=== PATIENT | female | born 1965 | race Caucasian/White ===

== ENCOUNTER 2017-09-12 22:22 | Emergency (ER) | payer SELFPAY ==
--- NOTE | 2017-09-12 22:57 | ERPHSYRPT ---
- History of Present Illness Time Seen by Provider: 09/12/17 22:50 Historian: patient Exam Limitations: no limitations Patient Subjective Stated Complaint: right flank pain since 1600 today. has hx kidney stones. difficulty urinating. Triage Nursing Assessment: alert and in slight distress. pain to right flank radiating around to belly. difficulty urinating. has hx of same. abdomen soft. Physician History: The patient is a 51-year-old female with her complaining of a sudden onset of right flank pain around 4 PM today or 7 hours ago. She has a history of kidney stones and took some old oral Toradol to times a day without relief as well as taking some Flomax. She is slightly nauseated. She did not vomit. She denies fever. She has a past medical history of kidney stones with lithotripsy treatment, and hysterectomy. Timing/Duration: today, hour(s) (7), sudden, worse Activities at Onset: none Quality: stabbing Abdominal Pain Onset Location: flank (right) Pain Radiation: no radiation Severity of Pain-Max: moderate Severity of Pain-Current: moderate Modifying Factors: Improves With: analgesics Associated Symptoms: nausea, No fever/chills, No vomiting Previous symptoms: same symptoms as today Allergies/Adverse Reactions: clindamycin Allergy (Intermediate, Verified 09/12/17 22:48) acetaminophen [From Darvocet-N 100] Allergy (Mild, Verified 09/12/17 22:48) Itching propoxyphene napsylate [From Darvocet-N 100] Allergy (Mild, Verified 09/12/17 22 :48) Itching Sulfa (Sulfonamide Antibiotics) Allergy (Mild, Verified 09/12/17 22:48) Itching Home Medications: Ketorolac Tromethamine [Toradol] 10 mg PO PRN 12/13/14 [History] Tamsulosin HCl 0.4 mg [Flomax 0.4 MG] 0.4 mg PO Q4-6HPRN PRN 12/13/14 [ History] Hx Tetanus, Diphtheria Vaccination/Date Given: No Hx Influenza Vaccination/Date Given: No Hx Pneumococcal Vaccination/Date Given: No - Review of Systems Constitutional: No Fever, No Chills Eyes: No Symptoms Ears, Nose, & Throat: No Symptoms Respiratory: No Cough, No Dyspnea Cardiac: No Chest Pain, No Edema, No Syncope Abdominal/Gastrointestinal: Abdominal Pain, Nausea, No Vomiting, No Diarrhea Genitourinary Symptoms: No Dysuria Musculoskeletal: No Back Pain, No Neck Pain Skin: No Rash Neurological: No Dizziness, No Focal Weakness, No Sensory Changes Psychological: No Symptoms Endocrine: No Symptoms Hematologic/Lymphatic: No Symptoms Immunological/Allergic: No Symptoms All Other Systems: Reviewed and Negative - Past Medical History Pertinent Past Medical History: Yes Neurological History: No Pertinent History ENT History: No Pertinent History Cardiac History: No Pertinent History Respiratory History: No Pertinent History Endocrine Medical History: No Pertinent History Musculoskeletal History: No Pertinent History GI Medical History: No Pertinent History History: No Pertinent History, Other Psycho-Social History: No Pertinent History Female Reproductive Disorders: No Pertinent History Other Medical History: kidney stones - Past Surgical History Past Surgical History: Yes Neuro Surgical History: No Pertinent History Cardiac: No Pertinent History Respiratory: No Pertinent History Gastrointestinal: No Pertinent History Genitourinary: Other Musculoskeletal: No Pertinent History Female Surgical History: Hysterectomy, Tubal Ligation Other Surgical History: tonsilectomy. LITHOTRIPSY. DENTAL SURGERY - Social History Smoking Status: Never smoker Exposure to second hand smoke: No Drug Use: none Patient Lives Alone: No - Nursing Vital Signs Nursing Vital Signs: Initial Vital Signs Temperature 97.8 F 09/12/17 22:30 Pulse Rate 78 09/12/17 22:30 Respiratory Rate 20 09/12/17 22:30 Blood Pressure 155/100 09/12/17 22:30 O2 Sat by Pulse Oximetry 98 09/12/17 22:30 Pain Scale Pain Intensity 0 - Physical Exam General Appearance: mild distress Eye Exam: PERRL/EOMI, eyes nml inspection Ears, Nose, Throat Exam: normal ENT inspection, pharynx normal, moist mucous membranes Neck Exam: normal inspection, non-tender, supple, full range of motion Respiratory Exam: normal breath sounds, lungs clear, No respiratory distress Cardiovascular Exam: regular rate/rhythm, normal heart sounds Gastrointestinal/Abdomen Exam: tenderness (right side) Pelvic Exam: not done Rectal Exam: not done Back Exam: CVA tenderness (right) Extremity Exam: normal inspection, normal range of motion, pelvis stable Neurologic Exam: alert, oriented x 3, cooperative, normal mood/affect, nml cerebellar function, sensation nml, No motor deficits Skin Exam: normal color, warm, dry SpO2 Interpretation: normal SpO2: 98 Oxygen Delivery: Room Air - CT Exams Abdomen/Pelvis CT Interpretation: Tele-radiologist Report, Other (CT of the abdomen and pelvis was compared with CT abdomen and pelvis dated 12/13/2014. There is stable right- sided pelviectasis and hydroureter that is proximal to a 3-4 mm calculus in the distal right ureter. I have reviewed both CT scans and did not see significant change today. Per Dr Hill.) Ordered Tests: Active Orders 24 hr Category Date Time Status IV Insertion STAT Care 09/12/17 23:01 Active ABDOMEN AND PELVIS W/0 CONTRAS [CT] Stat Exams 09/12/17 23:01 Taken CBC W DIFF Stat Lab 09/12/17 23:35 Completed CMP Stat Lab 09/12/17 23:35 Completed LIPASE Stat Lab 09/12/17 23:35 Completed UA W/RFX UR CULTURE Stat Lab 09/12/17 23:01 Ordered Medication Summary Discontinued Medications Generic Name Dose Route Start Last Admin Trade Name Freq PRN Reason Stop Dose Admin Hydromorphone HCl 2 mg 09/12/17 23:01 09/12/17 23:17 Hydromorphone 1 Mg/Ml Ampule IV 09/12/17 23:02 2 mg STAT ONE Administration Hydromorphone HCl Confirm 09/12/17 23:08 Dilaudid 2 Mg Injection Administered 09/12/17 23:09 Dose 2 mg .ROUTE .STK-MED ONE Sodium Chloride 1,000 mls @ 999 mls/hr 09/12/17 23:01 09/12/17 23:18 Sodium Chloride 0.9% 1000 Ml IV 09/13/17 00:01 999 mls/hr .Q1H1M STA Administration Sodium Chloride Confirm 09/12/17 23:09 Sodium Chloride 0.9% 1000 Ml Administered 09/12/17 23:10 Dose 1,000 mls @ ud .ROUTE .STK-MED ONE Promethazine HCl 25 mg 09/12/17 23:01 09/12/17 23:18 Phenergan 25 Mg Inj IV 09/12/17 23:02 25 mg STAT ONE Administration Promethazine HCl Confirm 09/12/17 23:08 Phenergan 25 Mg Inj Administered 09/12/17 23:09 Dose 25 mg .ROUTE .STK-MED ONE Tamsulosin HCl 0.4 mg 09/12/17 23:48 09/12/17 23:54 Flomax 0.4 Mg PO 09/12/17 23:49 0.4 mg HS STA Administration Tamsulosin HCl Confirm 09/12/17 23:51 Flomax 0.4 Mg Administered 09/12/17 23:52 Dose 0.4 mg .ROUTE .[facility] ONE Lab/Rad Data: Laboratory Result Diagrams 09/12/17 23:35 09/12/17 23:35 Laboratory Results 09/12/17 09/12/17 Range/Units 23:35 23:35 WBC 9.6 (4.0-10.5) K/mm3 RBC 4.95 (4.1-5.4) M/mm3 Hgb 14.8 (12.0-16.0) gm/dl Hct 43.7 (35-47) % MCV 88.3 (78-100) fl MCH 29.9 (26-32) pg MCHC 33.9 (32-36) g/dl RDW 12.6 (11.5-14.0) % Plt Count 220 (150-450) K/mm3 MPV 11.1 H (6-9.5) fl Gran % 77.2 H (36.0-66.0) % Eos # (Auto) 0.18 (0-0.5) Absolute Lymphs (auto) 1.27 (1.0-4.6) Absolute Monos (auto) 0.72 (0.0-1.3) Lymphocytes % 13.2 L (24.0-44.0) % Monocytes % 7.5 (0.0-12.0) % Eosinophils % 1.9 (0.00-5.0) % Basophils % 0.2 (0.0-0.4) % Absolute Granulocytes 7.45 H (1.4-6.9) Basophils # 0.02 (0-0.4) Sodium 140 (137-145) mmol/L Potassium 3.4 L (3.5-5.1) mmol/L Chloride 100 (98-107) mmol/L Carbon Dioxide 30 (22-30) mmol/L Anion Gap 13.5 (5-15) MEQ/L BUN 19 H (7-17) mg/dL Creatinine 0.91 (0.52-1.04) mg/dL Estimated GFR > 60 ML/MIN Glucose 120 H (74-106) mg/dL Calcium 9.2 (8.4-10.2) mg/dL Total Bilirubin 1.10 (0.2-1.3) mg/dL AST 26 (14-36) U/L ALT 32 (0-35) U/L Alkaline Phosphatase 132 H (38-126) U/L Serum Total Protein 7.0 (6.3-8.2) g/dL Albumin 4.3 (3.5-5.0) g/dL Lipase 181 (23-300) U/L - Progress Progress: improved Counseled pt/family regarding: lab results, diagnosis, need for follow-up, rad results - Departure Time of Disposition: 00:55 Departure Disposition: Home Clinical Impression: Hydronephrosis of right kidney Condition: Stable Critical Care Time: No Referrals: DAVIN ELDRIDGE [COURTESY STAFF] - Additional Instructions: You have chronic right sided hydronephrosis and a kidney stone in the lower parts of your right ureter. Numerous CT scans have shown this to be a chronic condition. You also have mildly low serum potassium level. You were given Dilaudid 2 mg and Phenergan 12-1/2 mg by IV, as well as IV fluids. You were also given Flomax 0.4 mg orally. You were given potassium 10 mEq orally. Please follow-up with a call to your urologist in the morning. Take Toradol 10 mg orally every 6 hours as needed. Prescriptions: Ketorolac Tromethamine [Toradol] 10 mg PO Q6H PRN PRN #12 tablet PRN Reason: Pain Ondansetron ODT 4 MG [Zofran Odt 4 mg] 1 tab PO Q6H PRN PRN #10 tab.rapdis PRN Reason: Nausea/Vomiting
[2017-09-12] MEDS ORDERED: Phenergan 25 MG INJ IV ONE (23:01)
[2017-09-12] MEDS ORDERED: Hydromorphone 1 mg/ml Ampule IV ONE (23:01)
[2017-09-12] MEDS ORDERED: Sodium Chloride 0.9% 1000 ML 1,000 ML IV STA (23:01)
[2017-09-12] MEDS ORDERED: DILAUDID 2 MG INJECTION ONE (23:08)
[2017-09-12] MEDS ORDERED: Phenergan 25 MG INJ ONE (23:08)
[2017-09-12] MEDS ORDERED: Sodium Chloride 0.9% 1000 ML 1,000 ML ONE (23:09)
[2017-09-12 23:39] LABS: BASOPHIL % 0.2 % (0.0-0.4); Basophil (Absolute #) 0.02 (0-0.4); Eosinophil % 1.9 % (0.00-5.0); Eosinophil (Absolute #) 0.18 (0-0.5); Granulocyte Absolute (ANC) 7.45 (1.4-6.9); Granulocytes % 77.2 % (36.0-66.0); Hematocrit 43.7 % (35-47); Hemoglobin 14.8 gm/dl (12.0-16.0); Lymphocyte (Absolute #) 1.27 (1.0-4.6); Lymphocytes % 13.2 % (24.0-44.0); Mean Cell Volume 88.3 fl (78-100); Mean Corpuscular Hemoglobin 29.9 pg (26-32); Mean Corpuscular Hgb Concent. 33.9 g/dl (32-36); Mean Platelet Volume 11.1 fl (6-9.5); Monocyte (Absolute #) 0.72 (0.0-1.3); Monocytes % 7.5 % (0.0-12.0); Platelet Count 220 K/mm3 (150-450); Red Blood Count 4.95 M/mm3 (4.1-5.4); Red Cell Distribution Width 12.6 % (11.5-14.0); White Blood Count 9.6 K/mm3 (4.0-10.5)
[2017-09-12] MEDS ORDERED: Flomax 0.4 MG PO STA (23:48)
[2017-09-12] MEDS ORDERED: Flomax 0.4 MG ONE (23:51)
[2017-09-13 00:03] LABS: ALBUMIN 4.3 g/dL (3.5-5.0); ALKALINE PHOSPHATASE 132 U/L (38-126); ANION GAP 13.5 MEQ/L (5-15); BLOOD UREA NITROGEN 19 mg/dL (7-17); CHLORIDE 100 mmol/L (98-107); Calcium 9.2 mg/dL (8.4-10.2); Carbon Dioxide 30 mmol/L (22-30); Creatinine 1 0.91 mg/dL (0.52-1.04); Glucose 120 mg/dL (74-106); LIPASE 181 U/L (23-300); Potassium 3.4 mmol/L (3.5-5.1); SGOT/AST 26 U/L (14-36); SGPT/ALT 32 U/L (0-35); SODIUM 140 mmol/L (137-145)
[2017-09-13 00:54] VITALS: BP 139/88; PULSE 96; O2SAT 98
[2017-09-13] MEDS ORDERED: Klor Con 10 MEQ PO ONE ×2 (00:59→01:01)
--- NOTE | 2017-09-13 09:20 | XRAY ---
Indication: Right flank pain, nausea, and vomiting. Multiple contiguous axial images obtained through the abdomen and pelvis without contrast using renal stone protocol. Comparison: December 13, 2014. Lung bases demonstrates minimal bibasilar dependent atelectasis. No infiltrate or effusion. Heart is not enlarged. There is a 3-4 mm distal right ureteral calculus, approximately sacrococcygeal junction. Proximal right ureter is distended up to 16mm with marked hydronephrosis and minimal perinephric stranding consistent with high-grade obstruction. Right kidney again demonstrates cortical thinning present from chronic scarring. Left kidney demonstrates a few nonobstructing punctate calculi. Noncontrasted stomach and bowel loops appear nonobstructed. Again previous hysterectomy and a few calcified splenic granulomas. Remaining liver, gallbladder, pancreas, spleen, adrenal glands, bladder, and aorta appear unremarkable for noncontrast exam. Osseous structures intact. Impression: 3-4 mm distal right ureteral calculus producing high-grade obstruction as detailed. Again nonobstructing left renal micro-calculi. Comment: Preliminary interpretation was made by [facility]. No discrepancy. CT DI 23.60
== END 2017-09-13 01:15 | disposition home or self-care (01) ==
LOC: ED 22:22
DX: N13.30 Unspecified hydronephrosis (principal); N20.0 Calculus of kidney; Z87.442 Personal history of urinary calculi; E87.6 Hypokalemia
CPT/HCPCS: 36000; 36415; 74176; 80053; 83690; 85025; 96360; 96374; 96375; 99284; J1170; J2550; A9270-GY

== ENCOUNTER 2021-02-08 14:03 | Emergency (ER) | payer SELFPAY ==
[2021-02-08] MEDS ORDERED: MORPHINE SULFATE 4 MG INJ IM ONE (14:31)
--- NOTE | 2021-02-08 14:46 | ERPHSYRPT ---
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 reports she was having mild pain in this knee for last month or so. rates 2/10 aching pain at rest but sharp intense pain with any movement. swelling noted to inner knee. pt reports she heard audible pop during fall. Physician History: 55 years old female presented in the ER with chief complaint of left knee pain sudden onset after she slipped and fell while working on tiles and heard a popping sound in the back of her left knee 2 hours ago and was unable to extend it with inability to put any weight on the left lower extremity. Moderate to severe sharp pain with movements and weightbearing. No direct trauma to the knee itself. Method of Injury: fell Occurred: hours ago (2) Quality: sharpness Severity of Pain-Max: severe Severity of Pain-Current: severe Lower Extremities Pain: knee: left Modifying Factors: Improves With: immobilization, rest. Worsens With: movement Associated Symptoms: unable to bear weight, popping sensation Allergies/Adverse Reactions: clindamycin Allergy (Intermediate, Verified 09/12/17 22:48) acetaminophen [From Darvocet-N 100] Allergy (Mild, Verified 09/12/17 22:48) Itching propoxyphene napsylate [From Darvocet-N 100] Allergy (Mild, Verified 09/12/17 22:48) Itching Sulfa (Sulfonamide Antibiotics) Allergy (Mild, Verified 09/12/17 22:48) Itching Home Medications: Venlafaxine HCl ER 75 mg [Effexor XR 75 MG] 150 mg PO DAILY 02/08/21 [History] Hx Tetanus, Diphtheria Vaccination/Date Given: Yes Hx Influenza Vaccination/Date Given: No Hx Pneumococcal Vaccination/Date Given: No Travel Risk - International Travel Have you traveled outside of the country in past 3 weeks: No - Coronavirus Screening Are you exhibiting any of the following symptoms?: No Close contact with a COVID-19 positive Pt in past 14-21 Days: No - Vaccine Status Have you recieved a Covid-19 vaccination: No - Review of Systems Constitutional: No Symptoms Ears, Nose, & Throat: No Symptoms Respiratory: No Symptoms Cardiac: No Symptoms Abdominal/Gastrointestinal: No Symptoms Genitourinary Symptoms: No Symptoms Musculoskeletal: Arthralgias, Fall Skin: No Symptoms Neurological: No Symptoms Psychological: No Symptoms Endocrine: No Symptoms Hematologic/Lymphatic: No Symptoms Immunological/Allergic: No Symptoms - Past Medical History Pertinent Past Medical History: Yes Neurological History: No Pertinent History ENT History: No Pertinent History Cardiac History: No Pertinent History Respiratory History: No Pertinent History Endocrine Medical History: No Pertinent History Musculoskeletal History: No Pertinent History GI Medical History: No Pertinent History History: No Pertinent History, Other Psycho-Social History: No Pertinent History Female Reproductive Disorders: No Pertinent History Other Medical History: kidney stones - Past Surgical History Past Surgical History: Yes Neuro Surgical History: No Pertinent History Cardiac: No Pertinent History Respiratory: No Pertinent History Gastrointestinal: No Pertinent History Genitourinary: Other Musculoskeletal: No Pertinent History Female Surgical History: Hysterectomy, Tubal Ligation Other Surgical History: tonsilectomy. LITHOTRIPSY. DENTAL SURGERY - Social History Smoking Status: Never smoker Exposure to second hand smoke: No Drug Use: none Patient Lives Alone: No - Female History Hx Now: No - Nursing Vital Signs Nursing Vital Signs: Initial Vital Signs Temperature 98.7 F 02/08/21 14:13 Pulse Rate 95 H 02/08/21 14:13 Respiratory Rate 16 02/08/21 14:13 Blood Pressure 142/85 02/08/21 14:13 O2 Sat by Pulse Oximetry 98 02/08/21 14:13 Pain Scale Pain Intensity 2 - Physical Exam General Appearance: no apparent distress, alert Eyes, Ears, Nose, Throat Exam: normal ENT inspection Neck Exam: normal inspection, supple, full range of motion Cardiovascular/Respiratory Exam: normal breath sounds, regular rate/rhythm Hips Exam: bilateral: non-tender, normal inspection, normal range of motion, no evidence of injury Legs Exam: bilateral leg: non-tender, normal inspection, normal range of motion, no evidence of injury Knees Exam: right knee: non-tender, normal inspection, normal range of motion, left knee: pain, soft tissue tenderness (Posterior lateral hamstring tendon insertion), swelling (Posterolateral), other (Limited extension flexion at knee and thigh.) Ankle Exam: bilateral ankle: non-tender, normal inspection, normal range of motion, no evidence of injury Foot Exam: bilateral foot: non-tender, normal inspection, normal range of motion, no evidence of injury Neuro/Tendon Exam: normal sensation, No normal motor functions, No normal tendon functions Mental Status Exam: alert, oriented x 3, cooperative Skin Exam: normal color SpO2 Interpretation: normal SpO2: 98 O2 Delivery: Room Air Ordered Tests: Active Orders 24 hr Category Date Time Status KNEE (3 VIEWS) Stat Exams 02/08/21 15:20 Taken Medication Summary Discontinued Medications Generic Name Dose Route Start Last Admin Trade Name Aparna PRN Reason Stop Dose Admin Morphine Sulfate 4 mg 02/08/21 14:31 02/08/21 14:58 Morphine Sulfate 4 Mg Inj IM 02/08/21 14:32 4 mg STAT ONE Administration Morphine Sulfate Confirm 02/08/21 14:57 Morphine Sulfate 4 Mg Inj Administered 02/08/21 14:58 Dose 4 mg .ROUTE .STK-MED ONE - Progress Progress: improved, pain not gone completely Progress Note: 02/08/21 15:43 X-rays negative for any acute fracture dislocation reviewed by me, official report pending. I believe patient has either hamstring tear/ligamentous injury. Placed in knee immobilizer, crutches, nonweightbearing and outpatient orthopedic surgery follow-up. Counseled pt/family regarding: diagnosis, need for follow-up, rad results - Departure Departure Disposition: Home Clinical Impression: Acute pain of left knee Condition: Stable Critical Care Time: No Referrals: STEFANIE CORRALES [COURTESY STAFF] - Instructions: Knee Sprain (DC), Knee Pain (DC) Additional Instructions: [facility] ([facility] Address: [address] [place] [id number] Hours: Closed ? Opens 8AM Mon Take pain medications as needed. No weightbearing. Apply ice. Follow-up with [facility] Ortho clinic for reevaluation tomorrow. Return to ER for intractable pain, numbness tingling in foot/toes or discoloration of toes. Prescriptions: Hydrocodone/Acetaminophen [Hydrocodone-Acetamin 7.5-325] 1 each PO Q6HPRN PRN 3 Days #12 tablet MDD 4 PRN Reason: Pain
[2021-02-08] MEDS ORDERED: MORPHINE SULFATE 4 MG INJ ONE (14:57)
[2021-02-08 16:06] VITALS: BP 120/76; PULSE 78; O2SAT 99
--- NOTE | 2021-02-08 18:42 | XRAY ---
Indication: Pain following injury. Comparison: None 3 view left knee demonstrates mild osteopenia, small suprapatella spur, and small posterior fabella. No other bony, articular, or soft tissue abnormalities.
== END 2021-02-08 16:07 | disposition home or self-care (01) ==
LOC: ED 14:03
DX: M25.562 Pain in left knee (principal); W01.10XA Fall on same level from slipping, tripping and stumbling with subsequent striking against unspecified object, initial encounter; Y93.9 Activity, unspecified; Y92.9 Unspecified place or not applicable
CPT/HCPCS: 73562; 96372; 99284; J2270

== ENCOUNTER 2023-05-31 01:31 | Emergency (ER) | payer SELFPAY ==
[2023-05-31] MEDS ORDERED: PERCOCET TABLET 5/325MG ONE ×2 (01:51→03:00)
[2023-05-31] MEDS ORDERED: PERCOCET TABLET 5/325MG PO STA ×2 (01:51→02:46)
--- NOTE | 2023-05-31 01:51 | ERPHSYRPT ---
- History of Present Illness Time Seen by Provider: 05/31/23 01:51 Source: patient Exam Limitations: no limitations Physician History: This is a right-handed 58-year-old white female patient who was putting up [place] decorations while standing on the couch. She lost her balance and fell backwards injuring her left wrist. She did not injure her head or neck or any other part of her body. Occurred: just prior to arrival Method of Injury: fell Quality: constant, aching Severity of Pain-Max: moderate Severity of Pain-Current: moderate Extremities Pain Location: wrist: left Modifying Factors: Improves With: movement Associated Symptoms: none Allergies/Adverse Reactions: clindamycin Allergy (Intermediate, Verified 09/12/17 22:48) acetaminophen [From Darvocet-N 100] Allergy (Mild, Verified 09/12/17 22:48) Itching propoxyphene napsylate [From Darvocet-N 100] Allergy (Mild, Verified 09/12/17 22:48) Itching Sulfa (Sulfonamide Antibiotics) Allergy (Mild, Verified 09/12/17 22:48) Itching Home Medications: Venlafaxine HCl ER 75 mg [Effexor XR 75 MG] 150 mg PO DAILY 02/08/21 [History] Acyclovir 800 mg [Acyclovir] 800 mg PO 5XD 05/31/23 [History] Amoxicillin/Potassium Clav [Amox-Clav 875-125 mg Tablet] 1 each PO DAILY 05/31/23 [History] Brompheniramine/Pseudoephed/Dm [Bromfed Dm 2-30-10 mg/5 ml Syr] 5 ml PO QID 05/31/23 [History] Hx Tetanus, Diphtheria Vaccination/Date Given: Yes Hx Influenza Vaccination/Date Given: No Hx Pneumococcal Vaccination/Date Given: No Travel Risk - International Travel Have you traveled outside of the country in past 3 weeks: No - Coronavirus Screening Are you exhibiting any of the following symptoms?: No Close contact with a COVID-19 positive Pt in past 14-21 Days: No - Vaccine Status Have you recieved a Covid-19 vaccination: No - Review of Systems Constitutional: No Symptoms Eyes: No Symptoms Ears, Nose, & Throat: No Symptoms Respiratory: No Symptoms Cardiac: No Symptoms Abdominal/Gastrointestinal: No Symptoms Genitourinary Symptoms: No Symptoms Musculoskeletal: Fall, Injury (Left wrist) Skin: No Symptoms Neurological: No Symptoms Psychological: No Symptoms Endocrine: No Symptoms Hematologic/Lymphatic: No Symptoms Immunological/Allergic: No Symptoms All Other Systems: Reviewed and Negative - Past Medical History Pertinent Past Medical History: Yes Neurological History: No Pertinent History ENT History: No Pertinent History Cardiac History: No Pertinent History Respiratory History: No Pertinent History Endocrine Medical History: No Pertinent History Musculoskeletal History: No Pertinent History GI Medical History: No Pertinent History History: No Pertinent History, Other Psycho-Social History: No Pertinent History Female Reproductive Disorders: No Pertinent History Other Medical History: kidney stones - Past Surgical History Past Surgical History: Yes Neuro Surgical History: No Pertinent History Cardiac: No Pertinent History Respiratory: No Pertinent History Gastrointestinal: No Pertinent History Genitourinary: Other Musculoskeletal: No Pertinent History Female Surgical History: Hysterectomy, Tubal Ligation Other Surgical History: tonsilectomy. LITHOTRIPSY. DENTAL SURGERY - Social History Smoking Status: Never smoker Exposure to second hand smoke: No Drug Use: none Patient Lives Alone: No - Nursing Vital Signs Nursing Vital Signs: Initial Vital Signs Temperature 97.3 F 05/31/23 01:38 Pulse Rate 72 05/31/23 01:38 Respiratory Rate 16 05/31/23 01:38 Blood Pressure 142/108 05/31/23 01:38 O2 Sat by Pulse Oximetry 98 05/31/23 01:38 Pain Scale Pain Intensity 8 - Physical Exam General Appearance: no apparent distress, alert, anxiety Eyes, Ears, Nose, Throat Exam: normal ENT inspection, moist mucous membranes Neck Exam: normal inspection, non-tender, supple, full range of motion Cardiovascular/Respiratory Exam: chest non-tender, no respiratory distress Abdominal Exam: non-tender Back Exam: normal inspection, normal range of motion, No CVA tenderness, No vertebral tenderness Shoulder Exam: normal inspection, non-tender, no evidence of injury, normal ROM Elbow/Forearm Exam: normal inspection, non-tender, no evidence of injury, normal ROM Wrist Exam: bone tenderness (Distal radius on the left), deformity (Distal radius on the left), limited ROM, soft tissue tenderness (Distal radius on the left), swelling Hand Exam: normal inspection, non-tender, no evidence of injury, normal ROM Neuro/Tendon Exam: normal sensation, normal motor functions, normal tendon functions, responds to pain, no evidence tendon injury Mental Status Exam: alert, oriented x 3, cooperative Skin Exam: normal color, warm, dry SpO2 Interpretation: normal O2 Delivery: Room Air Procedures - Splinting Time of Procedure: 02:50 Location of Splint: Left, Wrist Type of Splint: Orthoglass Short Arm Splint Splint Applied By: ED Nurse Pre-Proc Neuro Vasc Exam: normal Post-Proc Neuro Vasc Exam: neurovascular intact, unchanged from pre-exam Progress: Post splint placement. Patient can move her fingers. There is good, brisk capillary refill of her digits. - Course Nursing assessment & vital signs reviewed: Yes Ordered Tests: Active Orders 24 hr Category Date Time Status Sling Application STAT Care 05/31/23 02:36 Ordered Splint STAT Care 05/31/23 02:36 Ordered WRIST (MIN 3 VIEWS) Stat Exams 05/31/23 01:43 Taken Medication Summary Discontinued Medications Generic Name Dose Route Start Last Admin Trade Name Freq PRN Reason Stop Dose Admin Ibuprofen 600 mg 05/31/23 02:35 Ibuprofen 600 Mg Tablet PO 05/31/23 02:36 STAT ONE Oxycodone/Acetaminophen 1 tab 05/31/23 01:51 05/31/23 01:54 Oxycodone Hcl/Apap 5 Mg/325 Mg Tablet PO 05/31/23 01:52 1 tab STAT STA Administration Oxycodone/Acetaminophen Confirm 05/31/23 01:51 Oxycodone Hcl/Apap 5 Mg/325 Mg Tablet Administered 05/31/23 01:52 Dose 1 tab .ROUTE .STK-MED ONE - Progress Progress: improved, pain not gone completely Progress Note: 05/31/23 02:40 This patient's medical issue is 1 of low complexity. Level complex in the workup performed is based on review the patient's past medical history, review of patient's medication list, review of the patient's drug allergy list, history present illness and physical findings on examination. The workup in this patient includes x-ray of the left wrist. I interpreted the x-ray of the left wrist. There is a nondisplaced distal radius fracture. 05/31/23 02:43 On examination, there is a strong left radial pulse. Patient is neurovascularly intact. No evidence of tendon injury. 05/31/23 02:47 Patient is not allergic to acetaminophen. Patient is allergic to propoxyphene. Counseled pt/family regarding: diagnosis, need for follow-up, rad results Medical Desision Making - Independent Historian Additional History obtained from: Family (Daughter) - Diagnostic Testing Diagnostic test were ordered, analyzed, and reviewed by me: Yes Radiological Interpretation: Interpreted by me - Risk of complications The pt has a mod risk of morbidity or mortality based on: Need for prescription drug management - Departure Departure Disposition: Home Clinical Impression: Distal radius fracture, left Condition: Stable Critical Care Time: No Referrals: VITO LA MD [Primary Care Provider] - Follow up/PCP as directed Additional Instructions: Wear sling for comfort. Ice pack to area 3 times a day. Add 600 mg ibuprofen 3 times a day with food for the next 4 days. Follow-up today, 05/31/2023, or tomorrow, 06/01/2023, at the [facility] orth[facility] clinic between 8 AM and 10 AM for further evaluation and management. This is a walk-in clinic and you do not need to have an appointment. Prescriptions: Oxycodone HCl/Acetaminophen [Percocet 5-325 mg Tablet] 1 each PO Q8H PRN PRN #6 tablet MDD 3 PRN Reason: Moderate To Severe Pain
[2023-05-31 02:01] VITALS: TEMP 97.3
[2023-05-31] MEDS ORDERED: MOTRIN 600 MG PO ONE (02:35)
[2023-05-31] MEDS ORDERED: MOTRIN 600 MG ONE (02:38)
[2023-05-31 03:07] VITALS: BP 120/72; PULSE 76; RESP 16; O2SAT 94
--- NOTE | 2023-05-31 09:05 | XRAY ---
Indication: Pain following fall. Comparison: None 3 view left wrist demonstrates minimally displaced ulnar styloid fracture, nondisplaced comminuted fracture distal radius with intra-articular extension, and soft tissue swelling. No other bony, articular, or soft tissue abnormalities.
== END 2023-05-31 03:30 | disposition home or self-care (01) ==
LOC: ED 01:31
DX: S52.502A Unspecified fracture of the lower end of left radius, initial encounter for closed fracture (principal); W08.XXXA Fall from other furniture, initial encounter; Y93.E9 Activity, other interior property and clothing maintenance; Z79.891 Long term (current) use of opiate analgesic; Z79.899 Other long term (current) drug therapy; Z28.310 Unvaccinated for COVID-19
CPT/HCPCS: 29125; 73110; 99283; A9270-GY